=== PATIENT | female | born 1965 | race Two or more races ===

== ENCOUNTER 2020-12-30 13:08 | Emergency (ER) | payer OTHER ==
[~2020-12-30] VITALS: Ht 149.9 cm; Wt 56.7 kg
[2020-12-30 13:12] VITALS: BP 132/81
[2020-12-30] MEDS ORDERED: CARI350T PO (14:12)
--- NOTE | 2020-12-30 14:40 | NUR ---
Patient discharged to home in stable condition. Written and verbal after care instructions given. Patient verbalizes understanding of instruction.
== END 2020-12-30 14:42 | disposition home or self-care (01) ==
LOC: ER 13:11
DX: S23.3XXA Sprain of ligaments of thoracic spine, initial encounter (principal); V49.49XA Driver injured in collision with other motor vehicles in traffic accident, initial encounter; Y93.89 Activity, other specified; Y92.413 State road as the place of occurrence of the external cause; Y99.8 Other external cause status